=== PATIENT | male | born 1980 | race Caucasian/White ===

== ENCOUNTER → 2024-02-27 12:10 | Outpatient (REF) | payer OTHER, SELFPAY | LOC: RAD 12:10 | PROVIDERS: ATTENDING PHYSICIAN Nurse Practitioner Family | DX: R10.33 Periumbilical pain (principal) | CPT/HCPCS: 74177; Q9967 ==

== ENCOUNTER → 2024-04-08 06:27 | Day surgery (SDC) | payer OTHER, SELFPAY | LOC: GI 06:27 | PROVIDERS: ATTENDING PHYSICIAN Internal Medicine | DX: R10.84 Generalized abdominal pain (principal); R63.4 Abnormal weight loss; K52.9 Noninfective gastroenteritis and colitis, unspecified; K64.4 Residual hemorrhoidal skin tags; K64.8 Other hemorrhoids; K62.1 Rectal polyp; K92.1 Melena | CPT/HCPCS: 45380; 88305 ==

== ENCOUNTER 2024-11-23 13:44 | Emergency (ER) | payer OTHER, SELFPAY ==
[2024-11-23 13:48] VITALS: BP 118/80
[2024-11-23 14:09] VITALS: BMI 28.1
--- NOTE | 2024-11-23 14:19 | ED.GENMED ---
History of Present Illness
General
Chief Complaint: Skin Problem
Source: patient
Time Seen by Provider: 11/23/24 14:09
History of Present Illness
History of Present Illness:
43-year-old male presenting to the emergency department at the request of the primary care provider for evaluation of injury to the right lower extremity sustained after patient was hiking this past Friday, fell and sustained abrasion/hematoma to
the right anterior leg, notes that he had significant swelling which seem to be getting better but yesterday evening and today noticed more swelling around the ankle and foot despite some improvement around the initial area of trauma. Patient notes
that the abrasion appears to be well-healing and has no signs of infection. Patient states he also noticed temperature of 100 earlier this afternoon, took a dose of Motrin and states temperature seem to have resolved but he denies any URI like
symptoms.
Past History
Past History
ED Past Medical History: Other (Porphyria)
ED Past Surgical History: None and Orthopedic
Social History
Tobacco: Non-smoker
Alcohol: Occasional
Drug: None
Personal:
Living: with family
Employment: Employed
Family History
Family History: Other (Noncontributory)
Review of Systems
Review of Systems
All Other Systems: ROS reviewed and negative except as documented in HPI and ROS
Phy Exam
Physical Exam
Physical Exam:
GENERAL: Alert , in no apparent distress
EYE: conjunctiva clear
Head: Normocephalic atraumatic
NECK: Supple,
ENT: mmm.
LUNGS: no acute respiratory distress
NEUROLOGICAL: Alert and oriented
SKIN: Warm and dry, over the mid right anterior lower leg is a superficial abrasion with surrounding healing ecchymosis. No hematoma. No surrounding erythema, no streaking or lymphangitis
MUSCULOSKELETAL: There is edema to the right lower leg below the area of the abrasion into the ankle and foot. Easily palpable pedal and tibial pulse. Patient is able to range of motion extremity without any difficulty and sensation is grossly
intact to light touch well perfused.
PSYCH: Normal and appropriate interaction.
Scores
Heart Failure Risk
Heart Failure Risk Score: Not Applicable
Heart Score for Chest Pain Patients
STEMI patient?: Not applicable
Withdrawal Assessment of Alcohol
Withdrawal Assessment Completed?: Not applicable
Sepsis
Sepsis Screening
Sepsis Assessment: Sepsis Ruled Out
Sepsis Screen
Sepsis Screen: Sepsis Ruled Out
Date: 11/23/24
Time: 15:57
Course
Orders/Labs/Results
Orders:
Orders
11/23/24 14:04
Complete Blood Count/With Diff Urgent
Comprehensive Metabolic Panel Urgent
11/23/24 14:17
US Periph Venous LOWER Ext RT Urgent
Comment:
Reason For Exam: edema
Abnormal Lab Results
11/23/24
14:04
WBC 4.5 L 10^3/uL
(4.8-10.8)
MPV 10.7 H fL
(7.4-10.4)
Potassium 5.2 H mmol/L
(3.5-5.1)
Chloride 109 H mmol/L
(98-107)
Total Protein 6.2 L g/dl
(6.3-8.2)
11/23/24 14:04
11/23/24 14:04
Vital Signs
Initial and Last Documented VS:
Initial Vital Signs
Temp Pulse Resp BP Pulse Ox
98.3 F 86 16 118/80 100
11/23/24 13:48 11/23/24 13:48 11/23/24 13:48 11/23/24 13:48 11/23/24 13:48
Last Documented Vital Signs
Temp Pulse Resp BP Pulse Ox
98.3 F 86 16 118/80 100
11/23/24 13:48 11/23/24 13:48 11/23/24 13:48 11/23/24 13:48 11/23/24 13:48
MDM/Problems Addressed
Differential Diagnosis Includes:
Abrasion/contusion/hematoma, wound appears well-healing however considering cellulitis/infectious etiology, DVT, fracture, patient not exhibiting any signs or symptoms of compartment syndrome
MDM/Problems Addressed:
43-year-old male presenting to the emergency department for evaluation of injury sustained to the right lower extremity. Incidentally also had a temperature of 100 earlier this afternoon, fever currently resolved. Based off of presentation I
suspect patient's edema is likely secondary to the recent trauma that he had. He has intact pulses and has normal range of motion. Patient has been ambulatory so doubt fracture. Will obtain an ultrasound to assess. Anticipate discharge home with
close outpatient follow-up/monitoring
*Radiology
Radiology exam reviewed: radiology read reviewed
*Critical Care Note
Total Time (30-74mins, 75-104mins- exclusive of procedures): Not Applicable
Patient Management
Escalation/DeEscalation of care consider admission/obs:
Patient's workup is largely unremarkable. Ultrasound is negative for DVT. Patient does have a slight leukopenia which could be the beginning of a viral syndrome especially given his low-grade temperature earlier this morning. At this time he is
stable for discharge home. Aware of return precautions to the ER.
ED Attending Note
-
Portions of this chart may have been created with voice recognition software.� Occasional wrong word or��sound alike� substitutions may have occurred due to the inherent limitations of voice recognition software.
Discharge Plan
Departure
Patient Disposition: Home (Routine Discharge)
Date of Disposition: 11/23/24
Time of Disposition: 15:12
Patient with high blood pressure during this ER visit?: No
Discharge Problem:
Edema of right lower extremity
Instructions: Wound Care (DC)
Prescriptions:
No Action
No Current Medications
naproxen sodium [Anaprox DS] 550 MG tablet
550 mg PO BID Qty: 20 1RF
Referrals:
Aruna Mckenzie PA [Family Provider] -
Interventions
Interventions:
*Risk Screen - Suicide Last Done: 11/23/24 13:48
*General Assessment Last Done: 11/23/24 13:48
*Neglect/Abuse Screening Last Done: 11/23/24 13:48
*ED COVID-19 Vaccine History Last Done: 11/23/24 14:06
*Nursing Disposition Last Done: 11/23/24 15:29
ED-Skin Assessment Last Done: 11/23/24 14:06
Discharge Date and Time
Discharge Date/Time: 11/23/24 15:29
Print Language: URDU
[2024-11-23 14:25] LABS: % Basophils 0.4 % (0-2); % Eosinophils 3.3 % (0-6); % Immature Granulocytes 0.2 % (0-0.5); % Monocytes 6.8 % (1.7-9.3); % Neutrophils 63.3 % (42.2-75.2); Absolute Eosinophils 0.2 10^3/uL (0-0.7); Absolute Lymphocytes 1.2 10^3/uL (1.2-3.4); Absolute Monocytes 0.3 10^3/uL (0.1-0.6); Absolute Neutrophils 2.9 10^3/uL (1.4-6.5); Hematocrit 48.1 % (39.0-52.0); Hemoglobin 15.9 g/dL (13.0-18.0); Mean Corp Hgb Conc. 33.1 g/dL (33.0-37.0); Mean Corpuscular Volume 93.8 fL (80.0-94.0); Mean Platelet Volume 10.7 fL (7.4-10.4); Nucleated Red Blood Cells % 0 % (-); Platelet Count 216 10^3/uL (130-400); Red Blood Cell Count 5.13 10^6/uL (4.70-6.10); Red Cell Dist. Width 13.2 % (11.5-14.5); White Blood Cell Count 4.5 10^3/uL (4.8-10.8)
[2024-11-23 14:36] LABS: ALT (SGPT) 23 U/L (0-50); AST (SGOT) 25 U/L (17-59); Albumin 3.9 g/dl (3.5-5.0); Alkaline Phosphatase 68 U/L (38-126); Blood Urea Nitrogen 17 mg/dl (9-20); Calcium 9.1 mg/dl (8.4-10.2); Carbon Dioxide 30 mmol/L (22-30); Chloride 109 mmol/L (98-107); Estimated Creatinine Clearance 102 ml/min; Glucose 89 mg/dl (70-99); Potassium 5.2 mmol/L (3.5-5.1); Sodium 142 mmol/L (135-145); Total Bilirubin 0.6 mg/dl (0.2-1.3); Total Protein 6.2 g/dl (6.3-8.2); eGFR > 60.00
== END 2024-11-23 15:29 | disposition home or self-care (01) ==
LOC: EMR 13:44
PROVIDERS: Emergency Medicine; EMERGENCY PHYSICIAN Emergency Medicine; FAMILY PHYSICIAN Physician Assistant Medical
DX: R60.0 Localized edema (principal); W19.XXXA Unspecified fall, initial encounter; Y93.01 Activity, walking, marching and hiking
CPT/HCPCS: 99284; 80053; 85025; 93971

== ENCOUNTER 2024-12-08 19:07 | Emergency (ER) | payer OTHER, SELFPAY ==
[2024-12-08 19:08] VITALS: BP 146/106
--- NOTE | 2024-12-08 19:39 | ED.GENMED ---
History of Present Illness
General
Chief Complaint: Skin Problem
Source: patient
Exam Limitations: none
Time Seen by Provider: 12/08/24 19:35
Nursing documentation reviewed up to this point in time: agreed with
History of Present Illness
History of Present Illness:
44-year-old male limited past medical history painful swelling the left low back his buttock
No fever no nausea no vomiting, has had staph infections before, moving his bowels okay without pain
Past History
Past History
ED Past Medical History: Other (Porphyria)
ED Past Surgical History: None and Orthopedic
Social History
Tobacco: Non-smoker
Alcohol: Occasional
Drug: None
Personal:
Living: with family
Employment: Employed
Family History
Family History: Other (Noncontributory)
Review of Systems
Review of Systems
All Other Systems: Not applicable
Constitutional: Denies fever or fatigue
Cardiac: Reports no symptoms
ABD/GI: Reports no symptoms; Denies bloody stools or black stools
Musculoskeletal: Reports back pain (Swelling in the left low back to the buttock)
Phy Exam
Physical Exam
Physical Exam:
Physical Exam
General: no apparent distress, not acutely ill
Neck: No jaundice
Heart: s1/s2 regular rate and rhythm, no murmur. equal radial pulses.
Lungs: no acute respiratory distress. clear bilaterally
Abdomen: not tender.
Back: Tender fluctuant area perirectal region on the left 1-4 o'clock does not appear to involve the anal verge
Neuro: alert and oriented. no focal neurological deficits
Skin: no rash
Psychiatric: well kept. interactive and cooperative
Extremities: no edema.
Course
Orders/Labs/Results
Orders:
Orders
12/08/24 20:01
Ibuprofen [Motrin] 600 mg PO NOW STA
12/08/24 20:02
Doxycycline [Vibramycin] 100 mg PO NOW STA
Vital Signs
Initial and Last Documented VS:
Initial Vital Signs
Temp Pulse Resp BP Pulse Ox
98.2 F 88 20 146/106 97
12/08/24 19:08 12/08/24 19:08 12/08/24 19:08 12/08/24 19:08 12/08/24 19:08
Last Documented Vital Signs
Temp Pulse Resp BP Pulse Ox
98.2 F 88 20 146/106 97
12/08/24 19:08 12/08/24 19:08 12/08/24 19:08 12/08/24 19:08 12/08/24 19:08
Procedures
Incision/Drainage/Joint Aspiration
Buttock:
Anethesia: 1% Lidocaine with Epi, Added Na bicarb to local and other (marcaine)
Preparation: cleaned with Betadine
Type of procedure: drain
Nature of site: abscess
Description of abscess: less than 3cm
Loculations broken up: Yes
How much fluid was obtained?: scant amount
Fluid description: purulent
Treatment: packed with gauze
Additional information:
Local anesthetic, verbal consent, timeout, #10 blade over area of tenderness with some fluctuance appear to be more cellulitis than abscess small amount of purulence was removed wound was packed
MDM/Problems Addressed
Differential Diagnosis Includes:
Perirectal abscess, cellulitis, cutaneous abscess, does not appear to be pilonidal
MDM/Problems Addressed:
Abscess
*Critical Care Note
Total Time (30-74mins, 75-104mins- exclusive of procedures): Not Applicable
Update Note
Update Note:
Looks like more cellulitis and an abscess, to get some pus out, will start on antibiotics bring him back in 48 hours for wound check and reevaluation
ED Attending Note
-
Portions of this chart may have been created with voice recognition software.� Occasional wrong word or��sound alike� substitutions may have occurred due to the inherent limitations of voice recognition software.
Discharge Plan
Departure
Patient Disposition: Home (Routine Discharge)
Date of Disposition: 12/08/24
Time of Disposition: 20:06
Patient with high blood pressure during this ER visit?: No
Condition: Good
Discharge Problem:
Abscess
Instructions: Cellulitis (Skin Infection), Adult (DC), Skin Abscess
Prescriptions:
New
doxycycline hyclate 100 mg capsule
100 mg PO BID Qty: 14 0RF
amoxicillin-pot clavulanate 875-125 mg tablet
1 tab PO BID Qty: 14 0RF
oxycodone-acetaminophen [Percocet] 5-325 mg tablet
1 tab PO Q4HPRN PRN (Reason: pain) Qty: 14 0RF
ibuprofen 600 mg tablet
600 mg PO Q8H PRN (Reason: Pain) Qty: 20 0RF
No Action
No Current Medications
naproxen sodium [Anaprox DS] 550 MG tablet
550 mg PO BID Qty: 20 1RF
Activity Restrictions/Additional Instructions:
Return to the ER in 2 days for wound check and reevaluation
Interventions
Interventions:
*General Assessment Last Done: 12/08/24 19:08
Discharge Date and Time
Print Language: TAJIK
[2024-12-08] MEDS: VIBRAMYCIN 100 MG PO (20:22)
[2024-12-08] MEDS: MOTRIN 600 MG PO (20:22)
== END 2024-12-08 20:38 | disposition home or self-care (01) ==
LOC: EMR 19:07
PROVIDERS: EMERGENCY PHYSICIAN Emergency Medicine; FAMILY PHYSICIAN Physician Assistant Medical
DX: L02.212 Cutaneous abscess of back [any part, except buttock and flank] (principal)
CPT/HCPCS: 99282; 10060

== ENCOUNTER 2024-12-10 11:17 | Emergency (ER) | payer OTHER, SELFPAY ==
[2024-12-10 11:20] VITALS: BP 149/100
--- NOTE | 2024-12-10 12:39 | ED.SKININJ ---
HPI-Injury
General
Chief Complaint: Skin Problem
Source: patient
Exam Limitations: none
Time Seen by Provider: 12/10/24 12:27
History of Present Illness-Injury
Initial Injury comments:
44-year-old male presents for evaluation of abscess. He was here 2 days ago and had packing placed in a pilonidal abscess. He is here for packing removal. He notes some discomfort to the area but denies any fevers or significant drainage. No
other complaints
Past History
Past History
ED Past Medical History: Other (Porphyria)
ED Past Surgical History: None and Orthopedic
Social History
Tobacco: Non-smoker
Alcohol: Occasional
Drug: None
Personal:
Living: with family
Employment: Employed
Family History
Family History: Other (Noncontributory)
Phy Exam
Physical Exam
Physical Exam:
General: Well-appearing male no respiratory distress
Skin: Well-appearing abscess left pilonidal area with intact packing. No surrounding erythema no drainage no residual fluctuance
Course
Vital Signs
Initial and Last Documented VS:
Initial Vital Signs
Temp Pulse Resp BP Pulse Ox
98.1 F 82 18 149/100 96
12/10/24 11:20 12/10/24 11:20 12/10/24 11:20 12/10/24 11:20 12/10/24 11:20
Last Documented Vital Signs
Temp Pulse Resp BP Pulse Ox
98.1 F 82 18 149/100 96
12/10/24 11:20 12/10/24 11:20 12/10/24 11:20 12/10/24 11:20 12/10/24 11:20
MDM/Problems Addressed
Differential Diagnosis Includes:
Well-appearing abscess status post incision and drainage. The packing was removed without incident. Gauze was placed in the gluteal cleft for any further drainage. Wound care instructions were given. Stable for discharge. No indication for any
further packing
*Critical Care Note
Total Time (30-74mins, 75-104mins- exclusive of procedures): Not Applicable
ED Attending Note
-
Portions of this chart may have been created with voice recognition software.� Occasional wrong word or��sound alike� substitutions may have occurred due to the inherent limitations of voice recognition software.
Discharge Plan
Departure
Patient Disposition: Home (Routine Discharge)
Date of Disposition: 12/10/24
Time of Disposition: 12:40
Patient with high blood pressure during this ER visit?: No
Discharge Problem:
Visit for wound check
Instructions: Wound Care (DC)
Prescriptions:
No Action
No Current Medications
naproxen sodium [Anaprox DS] 550 MG tablet
550 mg PO BID Qty: 20 1RF
doxycycline hyclate 100 mg capsule
100 mg PO BID Qty: 14 0RF
amoxicillin-pot clavulanate 875-125 mg tablet
1 tab PO BID Qty: 14 0RF
oxycodone-acetaminophen [Percocet] 5-325 mg tablet
1 tab PO Q4HPRN PRN (Reason: pain) Qty: 14 0RF
ibuprofen 600 mg tablet
600 mg PO Q8H PRN (Reason: Pain) Qty: 20 0RF
Referrals:
Aruna Mckenzie PA [Family Provider] -
Activity Restrictions/Additional Instructions:
You may wash with warm soapy water or soak in water. Continue antibiotics. Return if needed otherwise
Interventions
Interventions:
*Risk Screen - Suicide Last Done: 12/10/24 11:20
*General Assessment Last Done: 12/10/24 11:20
*Neglect/Abuse Screening Last Done: 12/10/24 11:20
*ED- Fall Risk Assessment Last Done: 12/10/24 12:03
*ED COVID-19 Vaccine History Last Done: 12/10/24 12:03
Discharge Date and Time
Print Language: BRITISH
== END 2024-12-10 12:54 | disposition home or self-care (01) ==
LOC: EMR 11:17
PROVIDERS: EMERGENCY PHYSICIAN Emergency Medicine; FAMILY PHYSICIAN Physician Assistant Medical
DX: Z48.01 Encounter for change or removal of surgical wound dressing (principal)
CPT/HCPCS: 99281